=== PATIENT | male | born 1980 | race Two or more races ===

== ENCOUNTER 2017-09-20 11:57 | Emergency (ER) | payer BC ==
[~2017-09-20] VITALS: Ht 180.3 cm; Wt 83.9 kg
== END 2017-09-20 15:02 | disposition home or self-care (01) ==
LOC: ER 11:57
DX: S40.011A Contusion of right shoulder, initial encounter (principal); W18.39XA Other fall on same level, initial encounter; Y93.89 Activity, other specified; Y92.830 Public park as the place of occurrence of the external cause; Y99.8 Other external cause status